=== PATIENT | female | born 2000 | race Caucasian/White ===

== ENCOUNTER 2022-04-25 16:42 | Emergency (ER) | payer SELFPAY ==
[2022-04-25 16:53] VITALS: BP 123/77; PULSE 92; RESP 18; TEMP 98.3; BMI 26.2
[2022-04-25] MEDS ORDERED: METOCLOPRAMIDE HCL INJECTION 10 MG/2 ML VIAL IVPUSH ONE (17:19)
[2022-04-25] MEDS ORDERED: SODIUM CHLORIDE 0.9% 500 ML INFUS.BAG IV ONE (17:19)
[2022-04-25] MEDS ORDERED: FAMOTIDINE 20 MG/50 ML IVPB 20 MG/50 ML MG IVPB ONE ×2 (17:19→17:27)
[2022-04-25] MEDS ORDERED: ACETAMINOPHEN 1000 MG/100 ML BAG IVPB ONE (17:23)
[2022-04-25] MEDS ORDERED: METOCLOPRAMIDE HCL INJECTION 10 MG/2 ML VIAL ONE (17:26)
[2022-04-25] MEDS ORDERED: ACETAMINOPHEN INJECTION 100 ML IVPB ONE (17:27)
[2022-04-25 17:36] LABS: BASO % 0.3 % (0-2.0); EOS % 2.2 % (0-4.5); HEMATOCRIT 39.9 % (32.4-45.2); HEMOGLOBIN 13.1 GM/dL (10.7-15.3); LYMPH % 22.2 % (8-40); MCH 28.9 pg (25.7-33.7); MEAN CELL VOLUME 87.6 fl (80-96); MONO % 7.1 % (3.8-10.2); NEUT % 68.2 % (42.8-82.8); PLATELET COUNT 233 10^3/uL (134-434); RBC 4.55 M/mm3 (3.60-5.2); RDW 12.8 % (11.6-15.6); WHITE BLOOD COUNT 11.2 K/mm3 (4.0-10.0)
[2022-04-25 17:54] LABS: CHLORIDE 104 mmol/L (98-107); SODIUM 138 mmol/L (136-145)
[2022-04-25 17:56] LABS: CALCIUM 8.8 mg/dL (8.5-10.1)
[2022-04-25 17:57] LABS: ANION GAP 8 MMOL/L (8-16); BLOOD UREA NITROGEN 14.3 mg/dL (7-18); CO2 26 mmol/L (21-32); GLUCOSE,RANDOM 90 mg/dL (74-106); LIPASE 62 U/L (73-393)
[2022-04-25 18:00] LABS: CREATININE 0.5 mg/dL (0.55-1.3); SGOT/AST 10 U/L (15-37); SGPT/ALT 20 U/L (13-61)
[2022-04-25 18:01] LABS: TOT PROT 7.7 g/dl (6.4-8.2)
[2022-04-25 18:02] LABS: BILIRUBIN,TOTAL 0.2 mg/dL (0.2-1)
[2022-04-25 18:03] LABS: ALK PHOS 70 U/L (45-117)
[2022-04-25 20:06] LABS: EPI CELLS >36 /uL (0-25.1); HYALINE CASTS 1 /uL (0-3.1); URINE APPEARANCE CLEAR; URINE BACTERIA 803 /uL (0-1359); URINE BILIRUBIN NEGATIVE (NEGATIVE); URINE COLOR YELLOW; URINE GLUCOSE (UA) NEGATIVE (NEGATIVE); URINE KETONE NEGATIVE (NEGATIVE); URINE LEUK ESTERASE 1+ (NEGATIVE); URINE NITRITE NEGATIVE (NEGATIVE); URINE PROTEIN NEGATIVE (NEGATIVE); URINE RBC 8 /uL (0-23.9); URINE UROBILINOGEN 0.2 mg/dL (0.2-1.0); URINE WBC 61 /uL (0-25.8)
== END 2022-04-25 20:58 | disposition home or self-care (01) ==
LOC: JER 16:42
PROC: 3E0333Z Introduction of Anti-inflammatory into Peripheral Vein, Percutaneous Approach (ICD-10-PCS; principal; 2022-04-25)
PROC: 3E033GC Introduction of Other Therapeutic Substance into Peripheral Vein, Percutaneous Approach (ICD-10-PCS; 2022-04-25)
PROC: 3E033GC Introduction of Other Therapeutic Substance into Peripheral Vein, Percutaneous Approach (ICD-10-PCS; 2022-04-25)
DX: R11.2 Nausea with vomiting, unspecified (principal); R19.7 Diarrhea, unspecified
CPT/HCPCS: 36415; 76705-TC; 80053; 81003; 83690; 84702; 85025; 87077; 87086; 99284-25